=== PATIENT | male | born 1965 | race Caucasian/White ===

== ENCOUNTER 2020-08-10 08:48 | Emergency (ER) | payer BC, SELFPAY ==
--- NOTE | 2020-08-10 09:01 | ED.SKABFB ---
HPI - Skin/Abscess/Foreign Bdy General Chief complaint: Skin/Abscess/Foreign Body Stated complaint: Cyst Time Seen by Provider: 08/10/20 09:01 Source: patient and RN notes reviewed History of Present Illness HPI narrative: Patient is a 55-year-old male who presents the urgent care with complaints of an abscess to the back of his neck. Patient states that he noticed it last night. Patient states that he has had it there for approximately 15 years and it has become infected a few times over the course of the 15 years. Patient states that last infection was 5 years ago . Patient states that he started to pick on it last night and noticed some increased pain this morning. Denies of any drainage from the area. Denies of any fever, nausea, vomiting. Patient has not taken anything [id number] for his pain. No other acute complaints. No acute distress noted. Patient aware of the plan of care. Some parts of this dictation were generated by voice recognition software and may contain typographical and/or grammatical inaccuracies. Related Data Home Medications Medication Instructions Recorded Confirmed amlodipine 10 mg PO DAILY 08/10/20 08/10/20 venlafaxine [Effexor XR] 150 mg PO DAILY 08/10/20 08/10/20 Allergies Allergy/AdvReac Type Severity Reaction Status Date / Time No Known Allergies Allergy Verified 08/10/20 09:08 Review of Systems Review of Systems: Narrative: CONSTITUTIONAL: Denies fever, chills, or sweats. EYES: Denies visual changes, redness, or discharge. ENT: Denies rhinorrhea, congestion, sore throat, or otalgia. CARDIOVASCULAR: Denies chest pain, palpitations, or edema. RESPIRATORY: Denies cough or dyspnea. GASTROINTESTINAL: Denies abdominal pain, nausea, vomiting, or diarrhea. GENITOURINARY: Denies dysuria or hematuria. SKIN: Reports of an abscess to the back of the neck MUSCULOSKELETAL: Denies back pain, joint pain, or myalgia. NEUROLOGIC: Denies headache, numbness, or weakness. All other systems reviewed are negative, except as documented in HPI. [facility] Social History Social History Gender identity (if verbalized by the patient): Male Comments At the time of my signature, I reviewed and agree with the nursing past medical, surgical, social, and family history. There is no relevant family history pertinent to the patient complaint. Exam Narrative: Exam Narrative: GENERAL: This is a well-nourished, well-developed patient, in no apparent distress. HEAD: normocephalic, atraumatic. EYES: PERRL. Sclera clear/white. Vision is grossly intact. EARS: External ears normal NOSE: External nose normal with no obvious nasal discharge, nares without redness, no rhinorrhea. THROAT: Mucous membranes moist NECK: Neck supple, SKIN: 6 x 5 cm nonfluctuant mildly tender abscess to the posterior neck with approximately 3 x 3 cm erythema and pinpoint center without drainage. Good texture and turgor. NEURO: awake, alert, and oriented to person, place and time. There were no obvious focal neurologic abnormalities. EXTREMITIES: No clubbing, cyanosis, or edema. Course Vital Signs Vital signs: Vital Signs Temperature 98.3 F 08/10/20 09:02 Pulse Rate 104 H 08/10/20 09:02 Respiratory Rate 18 08/10/20 09:02 Blood Pressure 153/91 H 08/10/20 09:02 Pulse Oximetry 98 08/10/20 09:02 Temperature 98.3 F 08/10/20 09:02 Pulse Rate 104 H 08/10/20 09:02 Respiratory Rate 18 08/10/20 09:02 Blood Pressure 153/91 H 08/10/20 09:02 Pulse Oximetry 98 08/10/20 09:02 Reviewed-patient is informed that they may have pre-hypertension or hypertension based on a blood pressure reading in the department. I recommend the patient call the primary care provider listed on their discharge instructions or a physician of their choice this week to arrange follow-up for further evaluation of possible pre-hypertension or hypertension. MDM - Skin/Abscess/Foreign Bdy MDM Narrative Medical decision making narrative: Advised
[2020-08-10 09:02] VITALS: BP 153/91; PULSE 104; RESP 18; TEMP 36.8; O2SAT 98
== END 2020-08-10 09:16 | disposition home or self-care (01) ==
PROVIDERS: Emergency Provider Nurse Practitioner Family; PCP Internal Medicine Infectious Disease
DX: L02.11 Cutaneous abscess of neck (principal); I10 Essential (primary) hypertension; F41.9 Anxiety disorder, unspecified
CPT/HCPCS: 99213; G0463